=== PATIENT | male | born 1995 | race Caucasian/White ===

== ENCOUNTER → 2018-02-01 | Outpatient (CLI) | payer OTHER ==
--- NOTE | 2018-02-01 14:59 | RADIOLOGY IMAGING REPORT ---
FACILITY: [facility] [place] PATIENT NAME: Dale Montero : 1995 MR: [id number] V: [id number] EXAM DATE: ORDERING PHYSICIAN: GEORGETTE CARDENAS TECHNOLOGIST: Location: [facility] Patient: Dale Montero : 1995 Visit/Account:[id number] Date of Sevice: 02/01/2018 FOOT 3 VIEW LEFT Indication: Foot pain, previous break a few years ago. Now pain is recurring. Comparison: None Available Findings: 3 views of the left foot were obtained. Osseous alignment is noted in the foot without acute fracture or destructive osseous process. No for eign body or periosteal reaction. No significant underlying degenerative change. IMPRESSION: 1.No acute osseous abnormality of the left foot Report Dictated By: Moe Gardiner MD at 02/01/2018 2:53 PM Report E-Signed By: Moe Gardiner MD at 02/01/2018 2:54 PM WSN:[id number]
== END ==
LOC: RAD 01:00
PROVIDERS: ATTEND Internal Medicine
DX: R01.1 Cardiac murmur, unspecified (principal); M79.672 Pain in left foot
CPT/HCPCS: 93306